=== PATIENT | male | born 1935 | race Caucasian/White ===

== ENCOUNTER 2021-11-09 14:57 | Inpatient (IN) ==
[2021-11-09] MEDS ORDERED: SODIUM CHLORIDE 0.9% 1000ML 500 ML IV ONE (15:21)
[2021-11-09 15:45] LABS: Basophils # (auto) 0.02 K/uL (0-0.2); Basophils % (auto) 0.3 %; Eosinophils # (auto) 0.09 K/uL (0-0.5); Eosinophils % (auto) 1.4 %; Hematocrit (blood only) 45.1 % (42-52); Hemoglobin 15.3 g/dL (14.0-18.0); Immature Granulocytes # (auto) 0.01 K/uL (0.00-0.02); Immature Granulocytes % (auto) 0.2 %; Lymphocytes # (auto) 1.69 K/uL (1.2-3.4); Lymphocytes % (auto) 25.4 %; Mean Corpuscular Hemoglobin 30.9 pg (25-34); Mean Corpuscular Hgb Conc 33.9 g/dL (32-36); Mean Corpuscular Volume 91.1 fL (80-100); Mean Platelet Volume 9.4 fL (7.4-10.4); Monocytes # (auto) 0.51 K/uL (0.11-0.59); Monocytes % (auto) 7.7 %; Neutrophils # (auto) 4.34 K/uL (1.4-6.5); Platelet Count 276 K/uL (130-400); RDW Coefficient of Variation 13.5 % (11.5-14.5); RDW Standard Deviation 44.5 fL (36.4-46.3); Red Blood Count 4.95 M/uL (4.7-6.1); White Blood Count 6.66 K/uL (4.8-10.8)
[2021-11-09 15:55] LABS: INR 1.1 (0.9-1.1)
--- NOTE | 2021-11-09 15:59 | Emergency Department Note ---
History of Present Illness General Chief complaint: Head Pain Stated complaint: FELL FROM CHAIR, HIT HEAD ON CHAIR Time Seen by Provider: 11/09/21 15:09 History of Present Illness 86-year-old male who presents to the emergency department with his family for evaluation of a closed head injury after he fell off of a dining room table chair this afternoon around 1:30 PM. The fall was not witnessed, but family ca me back into the room to find the patient laying on his back. He also had a lump on the left posterior aspect of the head. He does not think that he had any loss of consciousness. Patient has history of dementia and is mostly nonvocal. In addition to his fall, the family is concerned that the patient has had decreased activity and poor oral intake over the last 2 to 3 days. The patient was seen yesterday by his PCP, Dr. Marianela Barboza, with a negative COVID- 19 and influenza screen. The patient has not had any recent cough, runny nose, sinus congestion or diarrhea. The son reports that the patient has issues with incontinence. He has not had any prior history of UTIs. The family denies history of any other major health issues. When the son asked the patient this afternoon what hurts, he pointed to his head. The patient has not had prior history of close head injuries. Home Medications Medication Instructions Recorded Confirmed Type aspirin 81 mg tablet,delayed 81 mg PO DAILY 11/09/21 11/09/21 History release atorvastatin 20 mg tablet 20 mg PO DAILY 11/09/21 11/09/21 History donepezil 5 mg tablet (Aricept) 5 mg PO QAM 11/09/21 11/09/21 History oxybutynin chloride 10 mg 10 mg PO DAILY 11/09/21 11/09/21 History tablet,extended release 24 hr trazodone 50 mg tablet 50 mg PO HS 11/09/21 11/09/21 History Allergies Allergy/AdvReac Type Severity Reaction Status Date / Time No Known Allergies Allergy Unverified 11/09/21 20:40 Past Med/Surg History Medical History (Updated 11/09/21 @ 21:59 by Ajit Rodriguez) Bladder incontinence Dementia Hyperlipidemia Surgical History (Updated 11/09/21 @ 21:28 by Ajit Rodriguez) No significant past surgical history Social History (Updated 11/09/21 @ 21:28 by Ajit Rodriguez) Smoking Status: Never smoker Preferred Language: [place] marital status: Current Living Situation: Family current occupational status: retired Feels Safe at Home: Yes Review of Systems 10 system review was performed and was negative except for pertinent positives and negatives as indicated in history of present illness Physical Exam Vital Signs Vital Signs - 24 hr 11/09/21 15:04 11/09/21 15:21 11/09/21 16:00 Temperature 36.6 C Temperature Source Temporal Artery Scan Pulse Rate 83 75 Pulse Rate [Apical] Pulse Rate from SpO2 Sensor 76 Pulse Rhythm Regular Pulse Strength Normal Respiratory Rate 16 17 Respiratory Effort / Characteristics Non-Labored Spontaneous Respiratory Depth Normal Respiratory Pattern Regular Blood Pressure 163/72 H 175/81 H Blood Pressure [Left Arm] Blood Pressure Mean 102 112 Blood Pressure Mean [Left Arm] Blood Pressure Position Sitting Pulse Oximetry 99 99 98 Oxygen Delivery Method Room Air Room Air Sepsis Recent Fever Within 48 Hours No Sepsis New/Unexplained Change in Mental Status No Sepsis Action Taken by Nursing No Action Required 11/09/21 16:48 11/09/21 17:00 11/09/21 17:30 Temperature Temperature Source Pulse Rate 67 68 68 Pulse Rate [Apical] Pulse Rate from SpO2 Sensor 68 68 68 Pulse Rhythm Pulse Strength Respiratory Rate 22 18 19 Respiratory Effort / Characteristics Respiratory Depth Respiratory Pattern Blood Pressure 179/77 H 159/70 H 168/78 H Blood Pressure [Left Arm] Blood Pressure Mean 111 99 108 Blood Pressure Mean [Left Arm] Blood Pressure Position Pulse Oximetry 98 99 97 Oxygen Delivery Method Sepsis Recent Fever Within 48 Hours Sepsis New/Unexplained Change in Mental Status Sepsis Action Taken by Nursing 11/09/21 18:00 11/09/21 19:07 Temperature Temperature Source Pulse Rate 76 Pulse Rate [Apical] 69 Pulse Rate from SpO2 Sensor Pulse Rhythm Pulse Strength Respiratory Rate 18 19 Respiratory Effort / Characteristics Respiratory Depth Respiratory Pattern Blood Pressure 180/94 H Blood Pressure [Left Arm] 166/78 H Blood Pressure Mean 122 Blood Pressure Mean [Left Arm] 107 Blood Pressure Position Pulse Oximetry 96 Oxygen Delivery Method Room Air Sepsis Recent Fever Within 48 Hours Sepsis New/Unexplained Change in Mental Status Sepsis Action Taken by Nursing CONSTITUTIONAL: Healthy and well nourished. Patient is nonverbal, but does oc casionally respond to questions with mumbling. HEENT: Patient has a small hematoma to the left occiput without laceration. Pupils equal, round and reactive. No epistaxis, subconjunctival hemorrhage, raccoon's eyes or mcdonald sign. NECK: No obvious tenderness to palpation through the cervical musculature or central cervical spine. RESPIRATORY: Clear to auscultation bilaterally with no wheezing, crackles, rhonchi or stridor. CARDIOVASCULAR: Regular rate and rhythm with no murmurs, rubs or gallops. GASTROINTESTINAL: Bowel sounds present in all quadrants. Abdomen is soft and nontender to palpation. MUSCULOSKELETAL: No significant discomfort with passive range of motion of major joints. No peripheral edema noted. INTEGUMENTARY: No rash or other significant dermatologic conditions noted. HEMATOLOGIC: No ecchymosis or petechiae. NEUROLOGIC: No obvious focal neurologic deficits appreciated. Course Course Patient history and physical exam were performed. Nurses notes were reviewed. Vital signs were reviewed, showing an elevated blood pressure of 163/72. The patient is otherwise afebrile and not hypoxic or tachycardic. Patient does not appear in any acute distress on exam. Given the patient's head injury, they did recommend CT imaging of the head and cervical spine. Regarding the patient's other recent change from baseline, but I did recommend additional work-up as well, and the family was in agreement. IV access was established, and labs were drawn. An initial ECG was performed, showing a normal sinus rhythm with incomplete right bundle branch block, rightward axis and junctional ST depres sions. Devious ECGs were available for comparison. The son reports that he does have a prior ECG within the [facility]. The patient was placed on air sampling and monitoring while in the emergency department. Portable chest x- ray was performed and was normal. Contrast CT of the head was concerning for possible right anterior frontal lobe cortical contusion versus hemorrhage, as well as a subdural hemorrhage versus calcification along the tentorium. Review of labs showed an initial normal CBC and coagulation studies. CMP showed an elevated random glucose of 170. Initial lactate was elevated at 2.2, with a repeat 2-hour lactate that was normal. Blood cultures x2 were collected given the patient's change in status over the past several days. Troponin was also elevated at 0.05. Procalcitonin and TSH were normal. Urinalysis with a straight cath sample was normal. COVID-19 was again tested as negative. Upon finding the abnormal head CT, the case was further discussed with Dr. Baird, ED team physician, who recommended discussing the case further with a neurosurgeon at [facility]. Also discussed findings with the patient's family, who was in agreement with transfer if warranted. The case was initially discussed with Dr. Olson, ED attending physician, who reviewed the patient's history. The images were transferred to [facility] for review. Dr. Olson indicated that he would discuss the case further with Dr. Brody (neurosurgeon) and Dr. Soares (trauma surgeon), and they do not feel that the patient warrants transfer to their facility at this time. They did recommend repeating the CT scan in 6 hours, and contacting them if there are any acute changes. Both the patient's family and attending physician were in agreement with this plan. Time to order for repeat CT imaging was entered into the system. The case was also discussed with Dr. Cheema, [facility] hospitalist, who will further manage the patient. There were no hospital beds available, so the patient will remain in the emergency department for further management until he can have repeat CT imaging, at which time further disposition will be determined. Administered Medications Discontinued Medications Sodium Chloride (Nss 1000ml) 500 mls @ 999 mls/hr IV .Q31M ONE Stop: 11/09/21 15:51 Last Infusion: 11/09/21 16:06 Dose: 0 mls/hr Documented by: [id number] Admin: 11/09/21 15:35 Dose: 999 mls/hr Documented by: [id number] Medical Decision Making Medical Records Attestation: I reviewed the patient's medical records. Home Medications Current Medication List: was personally reviewed by me Laboratory Data Attestation: I reviewed the patient's lab results. Result diagrams: 11/09/21 15:36 11/09/21 15:36 Lab Results 11/09/21 11/09/21 11/09/21 Range/Units 15:36 15:36 15:36 WBC 6.66 (4.8-10.8) K/uL RBC 4.95 (4.7-6.1) M/uL Hgb 15.3 (14.0-18.0) g/dL Hct 45.1 (42-52) % MCV 91.1 (80-100) fL MCH 30.9 (25-34) pg MCHC 33.9 (32-36) g/dL RDW Std Deviation 44.5 (36.4-46.3) fL RDW Coeff of Kamari 13.5 (11.5-14.5) % Plt Count 276 (130-400) K/uL MPV 9.4 (7.4-10.4) fL Immature Gran % (Auto) 0.2 % Neut % (Auto) 65.0 % Lymph % (Auto) 25.4 % [place] % (Auto) 7.7 % Eos % (Auto) 1.4 % Baso % (Auto) 0.3 % Neut # (Auto) 4.34 (1.4-6.5) K/uL Lymph # (Auto) 1.69 (1.2-3.4) K/uL [place] # (Auto) 0.51 (0.11-0.59) K/uL Eos # (Auto) 0.09 (0-0.5) K/uL Baso # (Auto) 0.02 (0-0.2) K/uL Immature Gran # (Auto) 0.01 (0.00-0.02) K/uL PT 11.0 (9.0-12.0) Seconds INR 1.1 (0.9-1.1) Sodium 139 (136-145) mmol/L Potassium 4.3 (3.5-5.1) mmol/L Chloride 100 (98-107) mmol/L Carbon Dioxide 31 (21-32) mmol/L Anion Gap 8 (3-11) BUN 18 (6-23) mg/dl Creatinine 1.02 (0.6-1.4) mg/dl Est Cr Clr Drug Dosing 49.1 ml/min Est GFR ( Amer) 76.2 ml/min Est GFR (Non-Af Amer) 65.8 ml/min BUN/Creatinine Ratio 17.6 (10-20) Glucose 170 H (70-99(Fasting)) mg/dl Lactate (0.4-2.0) mmol/L Calcium 10.2 H (8.5-10.1) mg/dl Magnesium 2.2 (1.7-2.4) mg/dl Total Bilirubin 1.2 H (0.2-1.0) mg/dl AST 29 (13-39) U/L ALT 25 (7-52) U/L Alkaline Phosphatase 95 (34-104) U/L Troponin I 0.05 H* (0-0.04) ng/ml Total Protein 7.9 (6.0-8.3) gm/dl Albumin 4.2 (3.4-5.0) gm/dl Globulin 3.7 (2.5-4.0) gm/dl Albumin/Globulin Ratio 1.1 (0.9-2) Procalcitonin (0-0.5) ng/ml TSH (0.300-4.500) uIu/ml Urine Color Urine Appearance (Clear) Urine pH (4.5-7.5) Ur Specific [place] (1.000-1.030) Urine Protein (Negative) Urine Glucose (UA) (Negative) Urine Ketones (Negative) Urine Blood (Negative) Urine Nitrite (Negative) Urine Bilirubin (Negative) Urine Urobilinogen (Negative) Ur Leukocyte Esterase (Negative) SARS-CoV-2, RNA, NAAT (NEGATIVE) 11/09/21 11/09/21 11/09/21 Range/Units 15:36 15:36 16:45 WBC (4.8-10.8) K/uL RBC (4.7-6.1) M/uL Hgb (14.0-18.0) g/dL Hct (42-52) % MCV (80-100) fL MCH (25-34) pg MCHC (32-36) g/dL RDW Std Deviation (36.4-46.3) fL RDW Coeff of Kamari (11.5-14.5) % Plt Count (130-400) K/uL MPV (7.4-10.4) fL Immature Gran % (Auto) % Neut % (Auto) % Lymph % (Auto) % [place] % (Auto) % Eos % (Auto) % Baso % (Auto) % Neut # (Auto) (1.4-6.5) K/uL Lymph # (Auto) (1.2-3.4) K/uL [place] # (Auto) (0.11-0.59) K/uL Eos # (Auto) (0-0.5) K/uL Baso # (Auto) (0-0.2) K/uL Immature Gran # (Auto) (0.00-0.02) K/uL PT (9.0-12.0) Seconds INR (0.9-1.1) Sodium (136-145) mmol/L Potassium (3.5-5.1) mmol/L Chloride (98-107) mmol/L Carbon Dioxide (21-32) mmol/L Anion Gap (3-11) BUN (6-23) mg/dl Creatinine (0.6-1.4) mg/dl Est Cr Clr Drug Dosing ml/min Est GFR ( Amer) ml/min Est GFR (Non-Af Amer) ml/min BUN/Creatinine Ratio (10-20) Glucose (70-99(Fasting)) mg/dl Lactate 2.2 H* (0.4-2.0) mmol/L Calcium (8.5-10.1) mg/dl Magnesium (1.7-2.4) mg/dl Total Bilirubin (0.2-1.0) mg/dl AST (13-39) U/L ALT (7-52) U/L Alkaline Phosphatase (34-104) U/L Troponin I (0-0.04) ng/ml Total Protein (6.0-8.3) gm/dl Albumin (3.4-5.0) gm/dl Globulin (2.5-4.0) gm/dl Albumin/Globulin Ratio (0.9-2) Procalcitonin (0-0.5) ng/ml TSH 1.537 (0.300-4.500) uIu/ml Urine Color Yellow Urine Appearance Clear (Clear) Urine pH 7.5 (4.5-7.5) Ur Specific [place] 1.008 (1.000-1.030) Urine Protein Negative (Negative) Urine Glucose (UA) Negative (Negative) Urine Ketones Negative (Negative) Urine Blood Negative (Negative) Urine Nitrite Negative (Negative) Urine Bilirubin Negative (Negative) Urine Urobilinogen Negative (Negative) Ur Leukocyte Esterase Negative (Negative) SARS-CoV-2, RNA, NAAT (NEGATIVE) 11/09/21 11/09/21 11/09/21 Range/Units 17:12 17:19 20:30 WBC (4.8-10.8) K/uL RBC (4.7-6.1) M/uL Hgb (14.0-18.0) g/dL Hct (42-52) % MCV (80-100) fL MCH (25-34) pg MCHC (32-36) g/dL RDW Std Deviation (36.4-46.3) fL RDW Coeff of Kamari (11.5-14.5) % Plt Count (130-400) K/uL MPV (7.4-10.4) fL Immature Gran % (Auto) % Neut % (Auto) % Lymph % (Auto) % [place] % (Auto) % Eos % (Auto) % Baso % (Auto) % Neut # (Auto) (1.4-6.5) K/uL Lymph # (Auto) (1.2-3.4) K/uL [place] # (Auto) (0.11-0.59) K/uL Eos # (Auto) (0-0.5) K/uL Baso # (Auto) (0-0.2) K/uL Immature Gran # (Auto) (0.00-0.02) K/uL PT (9.0-12.0) Seconds INR (0.9-1.1) Sodium (136-145) mmol/L Potassium (3.5-5.1) mmol/L Chloride (98-107) mmol/L Carbon Dioxide (21-32) mmol/L Anion Gap (3-11) BUN (6-23) mg/dl Creatinine (0.6-1.4) mg/dl Est Cr Clr Drug Dosing ml/min Est GFR ( Amer) ml/min Est GFR (Non-Af Amer) ml/min BUN/Creatinine Ratio (10-20) Glucose (70-99(Fasting)) mg/dl Lactate 1.0 (0.4-2.0) mmol/L Calcium (8.5-10.1) mg/dl Magnesium (1.7-2.4) mg/dl Total Bilirubin (0.2-1.0) mg/dl AST (13-39) U/L ALT (7-52) U/L Alkaline Phosphatase (34-104) U/L Troponin I (0-0.04) ng/ml Total Protein (6.0-8.3) gm/dl Albumin (3.4-5.0) gm/dl Globulin (2.5-4.0) gm/dl Albumin/Globulin Ratio (0.9-2) Procalcitonin < 0.05 (0-0.5) ng/ml TSH (0.300-4.500) uIu/ml Urine Color Urine Appearance (Clear) Urine pH (4.5-7.5) Ur Specific [place] (1.000-1.030) Urine Protein (Negative) Urine Glucose (UA) (Negative) Urine Ketones (Negative) Urine Blood (Negative) Urine Nitrite (Negative) Urine Bilirubin (Negative) Urine Urobilinogen (Negative) Ur Leukocyte Esterase (Negative) SARS-CoV-2, RNA, NAAT NEGATIVE (NEGATIVE) Imaging Data Attestation: I personally reviewed and interpreted this imaging study as follows: My Impression: My interpretation of a portable chest x-ray does not show any consolidations, pneumothorax or cardiomegaly. My interpretation of a noncontrast CT of the head and cervical spine shows concerning findings of possible cortical contusion versus intraparenchymal hemorrhage of the right anterior frontal lobe, as well as possible subdural hemorrhage versus calcification along the tentorium. Repeat CT was suggested in 6 to 12 hours. Radiologist reports were reviewed. Radiologist's Impression: Chest X-Ray 11/09/21 15:21 XR chest 1V portable HISTORY: weakness COMPARISON: None. FINDINGS: No focal lung consolidations to suggest pneumonia. No evidence for pulmonary edema. The heart is borderline enlarged. There is a tortuous thoracic aorta. No rib fractures. A few left basilar linear densities consistent with subsegmental atelectasis. IMPRESSION: No acute process. ACT 112: Negative or not required by law. Electronically signed by: Keo Johnson M.D. 11/09/2021 4:[address] 11/09/21 15:[address] DOSE: 537.48 mGy.cm HISTORY: Fall with closed head injury. TECHNIQUE: Multiaxial CT images of the head were performed without the use of intravenous contrast. Automated exposure control was utilized for this study. A dose lowering technique was utilized adhering to the principles of ALARA. Comparison: None. Findings: The paranasal sinuses and mastoid air cells are clear. The calvarium and skull base are intact. There is left posterior scalp swelling. A few small focal areas of hyperdensity within the right anterior frontal lobe with the largest on image 11 measuring 8 mm. These are consistent with small foci of intraparenchymal hemorrhage in the setting of cortical contusions. Small hyperdense foci along the tentorium could represent calcification or trace subdural hemorrhage. The ventricles and sulci demonstrate mild age-related involutional changes. There is no mass or midline shift. Moderate microvascular ischemic changes are noted. Impression: 1. Small foci of intraparenchymal hemorrhage within the right anterior frontal lobe consistent with cortical contusions. 2. Small focal areas of hyperdensity along the tentorium which could represent calcification or subdural hemorrhage. 3. Follow-up head CT in 6 to 12 hours recommended to ensure stability of these findings. ACT 112: Negative or not required by law. Electronically signed by: Keo Johnson M.D. 11/09/2021 5:08 PM ECG Data Attestation: I personally reviewed and interpreted this ECG as follows: Indication: + weakness Rate (beats per minute): 76 Rhythm: + normal sinus ECG Intervals/blocks: + Incomplete right bundle branch block ECG Brule: + Right axis deviation ECG ST segments: + ST depression (Junctional) ECG Findings: + Other (Junctional ST depressions) Comparison ECG Date: no prior available Blood Pressure Blood Pressure Findings: Elevated blood pressure MDM Narrative Cardiac monitoring: An order was placed for continuous cardiac monitoring. The monitor shows a rate of 76 bpm with a normal sinus rhythm. surveillance system monitor history was reviewed throughout the evaluation, and no dysrhythmias or changes in morphology were noted. Patient presents to the emergency department for evaluation of injuries after suffering a fall in his home this afternoon with a closed head injury. CT imaging of the head is questionable for a right frontal cortical contusion vers us hemorrhage, as well as a subdural hematoma versus calcification. Jhony CT imaging was recommended after discussing the case further with neurosurgery, trauma surgery and an ED physician at [facility]. At the time of transfer of care, the patient was awaiting repeat CT imaging to determine whether he would need to be transferred to the [facility]. The patient has also had other symptoms at home, with laboratory studies today showing an elevated troponin of unknown significance. ECG does not show any evidence for ischemia or infarct. No CT imaging was performed of the chest, abdomen or pelvis as he does not have any abnormal physical exam findings. Straight cath urinalysis does not show evidence for infection. Chest x-ray does not show evidence for pneumonia. Patient will be further evaluated by the [facility] hospitalist. Impression & Plan Acute intra-cranial hemorrhage, Dementia, Closed head injury, Elevated troponin, Decreased oral intake Discharge Plan Visit Data Chief Complaint: Head Pain Stated Complaint: FELL FROM CHAIR, HIT HEAD ON CHAIR ED Provider: Evan Baird ED Midlevel Provider: Ajit Rodriguez Discharge Problem: Acute intra-cranial hemorrhage, Dementia, Closed head injury, Elevated troponin, Decreased oral intake Forms Stand Alone Forms: My [facility] [employer] Prescriptions Prescriptions: No Action donepezil [Aricept] 5 mg Tablet 5 mg PO QAM RF: 0 oxybutynin chloride 10 mg Tablet Extended Release 24hr 10 mg PO DAILY RF: 0 trazodone 50 mg Tablet 50 mg PO HS RF: 0 aspirin [Aspir-Low] 81 mg Tablet,Delayed Release (Dr/Ec) 81 mg PO DAILY RF: 0 atorvastatin 20 mg Tablet 20 mg PO DAILY RF: 0 Referrals Referrals: Marianela Barboza MD [Primary Care Provider] - Discharge Problem: Closed head injury Qualifiers: Encounter type: initial encounter Qualified Code(s): S09.90XA - Unspecified injury of head, initial encounter
--- NOTE | 2021-11-09 16:08 | XRay Report ---
XR chest 1V portable HISTORY: weakness COMPARISON: None. FINDINGS: No focal lung consolidations to suggest pneumonia. No evidence for pulmonary edema. The hea rt is borderline enlarged. There is a tortuous thoracic aorta. No rib fractures. A few left basilar l inear densities consistent with subsegmental atelectasis. IMPRESSION: No acute process. ACT 112: Negative or not required by law. Electronically signed by: Keo Johnson M.D. 11/09/2021 4:06 PM
[2021-11-09 16:21] LABS: Albumin Globulin Ratio 1.1 (0.9-2); Albumin Level 4.2 gm/dl (3.4-5.0); BUN Creatinine Ratio 17.6 (10-20); Bilirubin,Total 1.2 mg/dl (0.2-1.0); Calcium 10.2 mg/dl (8.5-10.1); Creatinine Clr Calc Pharmacy 49.1 ml/min; Est GFR (African American) 76.2 ml/min; Est GFR (Non-African American) 65.8 ml/min; Globulin 3.7 gm/dl (2.5-4.0); Magnesium 2.2 mg/dl (1.7-2.4); Potassium 4.3 mmol/L (3.5-5.1); Total Protein 7.9 gm/dl (6.0-8.3)
[2021-11-09 16:36] LABS: Troponin I 0.05 ng/ml (0-0.04)
[2021-11-09 17:01] LABS: Appearance Urine Clear (Clear); Bilirubin Urine Negative (Negative); Blood Urine Negative (Negative); Color Urine Yellow; Glucose Urine UA Negative (Negative); Ketones Urine Negative (Negative); Leukocyte Esterase Urine Negative (Negative); Nitrite Urine Negative (Negative); Protein Urine Negative (Negative); Specific Gravity Urine 1.008 (1.000-1.030); Urobilinogen Urine Negative (Negative); pH Urine 7.5 (4.5-7.5)
--- NOTE | 2021-11-09 17:09 | CT Scan Report ---
HEAD CT NONCONTRAST CT DOSE: 537.48 mGy.cm HISTORY: Fall with closed head injury. TECHNIQUE: Multiaxial CT images of the head were performed without the use of intravenous contrast. A utomated exposure control was utilized for this study. A dose lowering technique was utilized adheri ng to the principles of ALARA. Comparison: None. Findings: The paranasal sinuses and mastoid air cells are clear. The calvarium and skull base are int act. There is left posterior scalp swelling. A few small focal areas of hyperdensity within the right anterior frontal lobe with the largest on image 11 measuring 8 mm. These are consistent with small f oci of intraparenchymal hemorrhage in the setting of cortical contusions. Small hyperdense foci along the tentorium could represent calcification or trace subdural hemorrhage. The ventricles and sulci d emonstrate mild age-related involutional changes. There is no mass or midline shift. Moderate microva scular ischemic changes are noted. Impression: 1. Small foci of intraparenchymal hemorrhage within the right anterior frontal lobe consistent with c ortical contusions. 2. Small focal areas of hyperdensity along the tentorium which could represent calcification or subdu ral hemorrhage. 3. Follow-up head CT in 6 to 12 hours recommended to ensure stability of these findings. ACT 112: Negative or not required by law. Electronically signed by: Keo Johnson M.D. 11/09/2021 5:08 PM
--- NOTE | 2021-11-09 20:06 | Emergency Department Note ---
ED Visit Note The patient was seen and examined with Ajit Rodriguez PA-C. I agree with the history, physical and findings. Please see the note for disposition and details. Patient had a borderline elevation of troponin. He had some general malaise. Lactate was initially elevated and rechecked and was normal. The patient will need management in the hospital. Unfortunately he had a minor fall and suffered a very tiny cerebral contusion. Ajit did discuss this with Ana Hanna. The patient will have repeat head CT imaging. If stable patient will remain here for further management. .
--- NOTE | 2021-11-09 20:59 | History & Physical Report ---
Date of Service November 09, 2021 Assessment & Plan (1) Acute intra-cranial hemorrhage: Plan: Traumatic ICH Situational hypertension Possible chronic BP elevation given cardiomegaly on x-ray Troponin elevation likely secondary to BP elevation DM2 diet-controlled, well-controlled as of recent hemoglobin A1c of 04 October 2020 Hyperlipidemia on statin Rx dementia PCU given troponin elevation Appropriate to hold home aspirin given ICH [facility] neurochecks Neurosurgery consultation Re: Traumatic ICH (ER provider already in touch with Dr. Brody. Transfer currently not indicated, repeat CT head recommended after 6 hours as per recommendation.) Initiate lisinopril if with persistent BP elevation Trend troponin, TTE if with progression ISS BG goal 1 10-1 40, update hemoglobin A1c DVT prophylaxis. SCDs Re: Traumatic ICH Full code as per son, Mr. Rajesh Headley. He requests updates from providers thru [phone]. Text document was generated using e[employer] voice recognition software. It may contain grammatical or spelling errors. Kindly contact undersigned for clarification of any documentation item in question. History of Present Illness Chief Complaint: Head trauma Primary Care Provider: Marianela Barboza MD History obtained from patient, family, and records. Limited history from patient secondary to dementia. Medical history significant for dementia, hyperlipidemia, BPH, DM2 diet- controlled. Patient last few days, patient noted to be sluggish with runny nose and sinus congestion symptoms. Headache with decreased appetite. No chest pain, no S OB. Family contacted PCP 2 days ago regarding concerns. PCP recommended outpatient COVID-19 test. No known recent COVID-19 contacts. Patient completed COVID-19 vaccination. Patient tilted over while seated at a chair at home. Left-sided head trauma without LOC. Patient brought to the ER for evaluation. 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 son Allergies Allergy/AdvReac Type Severity Reaction Status Date / Time No Known Allergies Allergy Unverified 11/09/21 20:40 Home Medications Medication Instructions Recorded Confirmed Type aspirin 81 mg tablet,delayed 81 mg PO DAILY 11/09/21 11/09/21 History release atorvastatin 20 mg tablet 20 mg PO DAILY 11/09/21 11/09/21 History donepezil 5 mg tablet (Aricept) 5 mg PO QAM 11/09/21 11/09/21 History oxybutynin chloride 10 mg 10 mg PO DAILY 11/09/21 11/09/21 History tablet,extended release 24 hr trazodone 50 mg tablet 50 mg PO HS 11/09/21 11/09/21 History Past Med/Surg History Medical History (Updated 11/09/21 @ 21:59 by Ajit Rodriguez) Bladder incontinence Dementia Hyperlipidemia Surgical History (Updated 11/09/21 @ 21:28 by Ajit Rodriguez) No significant past surgical history Social History (Updated 11/09/21 @ 21:28 by Ajit Rodriguez) Smoking Status: Never smoker Hx Alcohol Use: No Hx Substance Use: No Preferred Language: Puerto Rican Communication Ability: Effective Communication Ability Comment: Sometimes pt has difficulty communicating in maori d/t dementia Cascade Operator Required: Yes and No Beliefs That Will Affect Care: None marital status: Current Living Situation: Family Current Living Situation Comment: Lives with son and his family current occupational status: retired Other Information That Helps Us Care for You: No Feels Safe at Home: Yes Safety Concerns: Feels Safe At This Time Assistive Devices: None Review of Systems Review of Systems: Could not be reliably obtained secondary to dementia Physical Exam Physical Exam: GENERAL: Demented, comfortable, no respiratory distress SKIN: Normal color, warm HEENT: Partial alopecia, pink palpebral conjunctivae, no ptosis, dry buccal mucosa NECK : Cervical collar in place, no tenderness CHEST : Decreased breath sounds, no tenderness HEART : RRR, systolic murmur best heard over left sternal border ABDOMEN: Some distention, nontender EXTREMITIES : No LE swelling/tenderness, no other conspicuous deformities noted NEUROLOGIC : Demented, no facial asymmetry, gait and stance not assessed Results & Data Results & Data ([facility]) Vital Signs (Past 12 Hours) Vital Signs Temp Pulse Pulse Resp BP BP Pulse Ox 11/09/21 19:07 69 19 166/78 H 96 11/09/21 18:00 76 18 180/94 H 11/09/21 17:30 68 19 168/78 H 97 11/09/21 17:00 68 18 159/70 H 99 11/09/21 16:48 67 22 179/77 H 98 11/09/21 16:00 75 17 175/81 H 98 11/09/21 15:21 99 11/09/21 15:04 36.6 C 83 16 163/72 H 99 Laboratory Results Laboratory Results WBC 6.66 K/uL (4.8-10.8) 11/09/21 15:36 RBC 4.95 M/uL (4.7-6.1) 11/09/21 15:36 Hgb 15.3 g/dL (14.0-18.0) 11/09/21 15:36 Hct 45.1 % (42-52) 11/09/21 15:36 MCV 91.1 fL (80-100) 11/09/21 15:36 MCH 30.9 pg (25-34) 11/09/21 15:36 MCHC 33.9 g/dL (32-36) 11/09/21 15:36 RDW Std Deviation 44.5 fL (36.4-46.3) 11/09/21 15:36 RDW Coeff of Kamari 13.5 % (11.5-14.5) 11/09/21 15:36 Plt Count 276 K/uL (130-400) 11/09/21 15:36 MPV 9.4 fL (7.4-10.4) 11/09/21 15:36 Immature Gran % (Auto) 0.2 % 11/09/21 15:36 Neut % (Auto) 65.0 % 11/09/21 15:36 Lymph % (Auto) 25.4 % 11/09/21 15:36 [place] % (Auto) 7.7 % 11/09/21 15:36 Eos % (Auto) 1.4 % 11/09/21 15:36 Baso % (Auto) 0.3 % 11/09/21 15:36 Neut # (Auto) 4.34 K/uL (1.4-6.5) 11/09/21 15:36 Lymph # (Auto) 1.69 K/uL (1.2-3.4) 11/09/21 15:36 [place] # (Auto) 0.51 K/uL (0.11-0.59) 11/09/21 15:36 Eos # (Auto) 0.09 K/uL (0-0.5) 11/09/21 15:36 Baso # (Auto) 0.02 K/uL (0-0.2) 11/09/21 15:36 Immature Gran # (Auto) 0.01 K/uL (0.00-0.02) 11/09/21 15:36 PT 11.0 Seconds (9.0-12.0) 11/09/21 15:36 INR 1.1 (0.9-1.1) 11/09/21 15:36 Sodium 139 mmol/L (136-145) 11/09/21 15:36 Potassium 4.3 mmol/L (3.5-5.1) 11/09/21 15:36 Chloride 100 mmol/L (98-107) 11/09/21 15:36 Carbon Dioxide 31 mmol/L (21-32) 11/09/21 15:36 Anion Gap 8 (3-11) 11/09/21 15:36 BUN 18 mg/dl (6-23) 11/09/21 15:36 Creatinine 1.02 mg/dl (0.6-1.4) 11/09/21 15:36 Est Cr Clr Drug Dosing 49.1 ml/min 11/09/21 15:36 Est GFR ( Amer) 76.2 ml/min 11/09/21 15:36 Est GFR (Non-Af Amer) 65.8 ml/min 11/09/21 15:36 BUN/Creatinine Ratio 17.6 (10-20) 11/09/21 15:36 Glucose 170 mg/dl (70-99(Fasting)) H 11/09/21 15:36 Lactate 1.0 mmol/L (0.4-2.0) 11/09/21 17:19 Calcium 10.2 mg/dl (8.5-10.1) H 11/09/21 15:36 Magnesium 2.2 mg/dl (1.7-2.4) 11/09/21 15:36 Total Bilirubin 1.2 mg/dl (0.2-1.0) H 11/09/21 15:36 AST 29 U/L (13-39) 11/09/21 15:36 ALT 25 U/L (7-52) 11/09/21 15:36 Alkaline Phosphatase 95 U/L (34-104) 11/09/21 15:36 Troponin I 0.05 ng/ml (0-0.04) H* 11/09/21 15:36 Total Protein 7.9 gm/dl (6.0-8.3) 11/09/21 15:36 Albumin 4.2 gm/dl (3.4-5.0) 11/09/21 15:36 Globulin 3.7 gm/dl (2.5-4.0) 11/09/21 15:36 Albumin/Globulin Ratio 1.1 (0.9-2) 11/09/21 15:36 Procalcitonin < 0.05 ng/ml (0-0.5) 11/09/21 17:12 TSH 1.537 uIu/ml (0.300-4.500) 11/09/21 15:36 Urine Color Yellow 11/09/21 16:45 Urine Appearance Clear (Clear) 11/09/21 16:45 Urine pH 7.5 (4.5-7.5) 11/09/21 16:45 Ur Specific [place] 1.008 (1.000-1.030) 11/09/21 16:45 Urine Protein Negative (Negative) 11/09/21 16:45 Urine Glucose (UA) Negative (Negative) 11/09/21 16:45 Urine Ketones Negative (Negative) 11/09/21 16:45 Urine Blood Negative (Negative) 11/09/21 16:45 Urine Nitrite Negative (Negative) 11/09/21 16:45 Urine Bilirubin Negative (Negative) 11/09/21 16:45 Urine Urobilinogen Negative (Negative) 11/09/21 16:45 Ur Leukocyte Esterase Negative (Negative) 11/09/21 16:45 Impressions Chest X-Ray 11/09/21 15:21 XR chest 1V portable HISTORY: weakness COMPARISON: None. FINDINGS: No focal lung consolidations to suggest pneumonia. No evidence for pulmonary edema. The heart is borderline enlarged. There is a tortuous thoracic aorta. No rib fractures. A few left basilar linear densities consistent with subsegmental atelectasis. IMPRESSION: No acute process. ACT 112: Negative or not required by law. Electronically signed by: Keo Johnson M.D. 11/09/2021 4:[address] 11/09/21 15:[address] DOSE: 537.48 mGy.cm HISTORY: Fall with closed head injury. TECHNIQUE: Multiaxial CT images of the head were performed without the use of intravenous contrast. Automated exposure control was utilized for this study. A dose lowering technique was utilized adhering to the principles of ALARA. Comparison: None. Findings: The paranasal sinuses and mastoid air cells are clear. The calvarium and skull base are intact. There is left posterior scalp swelling. A few small focal areas of hyperdensity within the right anterior frontal lobe with the largest on image 11 measuring 8 mm. These are consistent with small foci of intraparenchymal hemorrhage in the setting of cortical contusions. Small hyperdense foci along the tentorium could represent calcification or trace subdural hemorrhage. The ventricles and sulci demonstrate mild age-related involutional changes. There is no mass or midline shift. Moderate microvascular ischemic changes are noted. Impression: 1. Small foci of intraparenchymal hemorrhage within the right anterior frontal lobe consistent with cortical contusions. 2. Small focal areas of hyperdensity along the tentorium which could represent calcification or subdural hemorrhage. 3. Follow-up head CT in 6 to 12 hours recommended to ensure stability of these findings. ACT 112: Negative or not required by law. Electronically signed by: Keo Johnson M.D. 11/09/2021 5:08 PM Diagnostic Findings EKG as per my interpretation rate 75, NSR, RAD, incomplete RBBB, no ischemia
--- NOTE | 2021-11-09 22:47 | CT Scan Report ---
HEAD CT NONCONTRAST CT DOSE: 1311.06 mGy.cm HISTORY: Intracranial hemorrhage. Follow-up. TECHNIQUE: Multiaxial CT images of the head were performed without the use of intravenous contrast. A utomated exposure control was utilized for this study. A dose lowering technique was utilized adheri ng to the principles of ALARA. Comparison: Head CT 11/09/2021. Findings: The paranasal sinuses and mastoid air cells are clear. Mild left posterior scalp swelling i s again noted. The calvarium and skull base are intact. Hyperdense foci along the tentorium may repre sent calcifications or trace subdural hematoma. This remains unchanged. There is no mass, midline calderon ft, acute infarct. Atrophy and microvascular ischemic changes are again noted. A few punctate hypoden se foci within the right anterior frontal lobe likely representing intraparenchymal hematomas in the setting of cortical contusions. A similar tiny prior study. No additional areas of hemorrhage identif ied within the brain. Impression: 1. No change in the small foci of intraparenchymal hemorrhage within the right anterior frontal lobe consistent with cortical contusions. 2. Small focal areas of hyperdensity along the tentorium are also stable and may represent calcificat ion or trace subdural hemorrhage. 3. Follow-up 12 to [address] follow-up is recommended to ensure stability/resolution. ACT 112: Negative or not required by law. Electronically signed by: Keo Johnson M.D. 11/09/2021 10:45 PM
[2021-11-09] MEDS ORDERED: ACETAMINOPHEN 325 MG TAB PO PRN (23:06)
[2021-11-09] MEDS ORDERED: DEXTROSE 50% 50 ML SYRINGE IV PRN (23:06)
[2021-11-09] MEDS ORDERED: CARBOHYDRATES FOR HYPOGLYCEMIA PO PRN (23:06)
[2021-11-09] MEDS ORDERED: OLANZapine 10 MG/2.1 ML SDV IM PRN (23:06)
[2021-11-09] MEDS ORDERED: GLUCAGON FOR INJ 1 MG VIAL SQ PRN (23:06)
[2021-11-09] MEDS ORDERED: GLUCOSE 40% GEL 15 GM TUBE PO PRN (23:06)
[2021-11-09] MEDS ORDERED: GLUCOSE 10 TABS/TUBE PO PRN (23:06)
[2021-11-09] MEDS ORDERED: PROMETHAZINE HCL 6.25 MG in SODIUM CHLORIDE 0.9% 50 ML IV PRN (23:06)
[2021-11-10] MEDS: SODIUM CHLORIDE 0.9% 1000ML 1,000 ML IV SCH ×2 (00:54→20:32)
[2021-11-10] MEDS: INSULIN ASPART PER UNIT SC SCH ×4 (00:55→18:21)
[2021-11-10 06:06] LABS: Basophils # (auto) 0.02 K/uL (0-0.2); Basophils % (auto) 0.3 %; Eosinophils # (auto) 0.11 K/uL (0-0.5); Eosinophils % (auto) 1.5 %; Hematocrit (blood only) 44.5 % (42-52); Hemoglobin 15.2 g/dL (14.0-18.0); Immature Granulocytes # (auto) 0.01 K/uL (0.00-0.02); Immature Granulocytes % (auto) 0.1 %; Lymphocytes # (auto) 1.98 K/uL (1.2-3.4); Lymphocytes % (auto) 26.3 %; Mean Corpuscular Hemoglobin 30.5 pg (25-34); Mean Corpuscular Hgb Conc 34.2 g/dL (32-36); Mean Corpuscular Volume 89.2 fL (80-100); Mean Platelet Volume 9.3 fL (7.4-10.4); Monocytes # (auto) 0.85 K/uL (0.11-0.59); Monocytes % (auto) 11.3 %; Neutrophils # (auto) 4.57 K/uL (1.4-6.5); Neutrophils % (auto) 60.5 %; Platelet Count 269 K/uL (130-400); RDW Coefficient of Variation 13.3 % (11.5-14.5); RDW Standard Deviation 43.4 fL (36.4-46.3); Red Blood Count 4.99 M/uL (4.7-6.1); White Blood Count 7.54 K/uL (4.8-10.8)
[2021-11-10] MEDS: ATORVASTATIN 20 MG TAB PO SCH (10:54)
[2021-11-10] MEDS: DONEPEZIL HCL 5 MG TAB PO SCH (10:55)
[2021-11-10] MEDS: OXYBUTYNIN CHLORIDE XL 5 MG TABCR PO SCH (10:57)
--- NOTE | 2021-11-10 12:10 | CT Scan Report ---
CT head/brain wo con CLINICAL HISTORY: ffup, ich Technique: Contiguous axial CT images of the head were acquired from the base of the skull to the donna yokasta without intravenous contrast administration. Images were viewed in brain, subdural and bone [facility]. Automated dose lowering techniques and/or adjustment according to patient size were utilized for this exam. Comparison: Comparison is made to CT head 11/09/2021 Findings: Areas of decreased attenuation are present in the periventricular and subcortical white matter bilate rally consistent with small vessel ischemic disease. Generalized cerebral atrophy with commensurate e nlargement of the ventricles, sulci, and cisterns is also present. There is no acute intracranial hem orrhage or evidence of acute territorial infarction. No shift of the midline structures, mass effect, or extra-axial abnormalities are shown. Atherosclerotic calcifications are present in the intracran ial segments of the internal carotid arteries. Imaged portions of the paranasal sinuses and mastoid air cells are clear. The orbits appear normal. There are no acute fractures of the calvaria or scalp swelling. Impression: No acute intracranial hemorrhage, no evidence of acute territorial infarction or other acute intracra nial disease process. ACT 112: Negative or not required by law. Electronically signed by: Jhonatan Baker M.D. 11/10/2021 12:09 PM
--- NOTE | 2021-11-10 14:30 | Hospitalist Progress Note ---
Date of Service November 10, 2021 Assessment & Plan (1) Acute intra-cranial hemorrhage: Plan: 86-year-old male with PMH of dementia, HLD, BPH, DM 2 diet-controlled presented 11/09 to our ED after fall and found to have traumatic ICH at ED. Per patient's son Rajesh, patient fell on the wooden floor while trying to sit himself on chair on the day of arrival. 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 He is being managed for the following: #. Acute intracranial hemorrhage #. Weakness Patient tilted over while seated at a chair at home. Left-sided head trauma without LOC. Patient did not have any dizziness/sweating/nausea/chest pain/palpitation prior to fall. Per patient's son, patient has not been eating properly and has been becoming weak 2 days UPWARD BOUND DIRECTOR Admitting CT head: Small foci of intraparenchymal hemorrhage within the right anterior frontal lobe consistent with cortical contusions and a small focal areas of hyperdensity along the tentorium likely calcification versus subdural hemorrhage. Follow-up CT head x2 at 6 to 12 hours apart: Stable hemorrhage, no expansion. Patient neurologically stable, childs and sensation intact. Patient AO x3. Dysphagia screen, advance diet as tolerated As needed CT head for any acute worsening of neurological status. Every 4hr neurochecks. Per printing film stripper, ER provider was in touch with Dr. Brody, [facility] neurosurgery. DC IV fluids once patient starts to eat. PT/OT consult, likely need placement. #. Other chronic medical conditions: HTN, HLD, DM, BPH, dementia Resume/continue with home medication as and when appropriate. Troponin was flat trended around 0.05, EKG reviewed. Blood pressure slightly elevated, likely situational. A1c of 7 in September 2020. Appropriately controlled. Patient on sliding scale while in hospital. Aspirin on hold due to intracranial hemorrhage. PCU given troponin elevation DVT prophylaxis. SCDs Re: Traumatic ICH Full code as per son, Mr. Rajesh Headley. He requests updates from providers thru [phone]. 11/10 --> patient johnny Haro updated at bedside about the current status of the patient and further plan of care. Answered all his questions. He voiced understanding and was agreeable to the plan of care. Admission and Anticipated Discharge Date Admission Date: November 09, 2021 Subjective Patient was seen and examined at bedside for traumatic intracranial hemorrhage. Patient was lying in bed, on room air, NAD, no new acute events overnight. Patient denies any fever/chills/headache/dizziness/chest pain/palpitation/other review of symptoms. Patient remains n.p.o. until further CT scan of the head. Dysphagia screen as needed. Physical Exam Physical Exam: GENERAL: Alert and oriented x3. NAD, on RA. HEENT: No pallor, no icterus. Pupils equal, round and reactive to light. Oral mucosa dry. NECK: No JVD, no neck masses. HEART: S1 and S2 heard. Regular rate and rhythm. No murmur, no gallop. RESPIRATORY SYSTEM: Normal AP diameter. No accessory muscle use. No wheezing, no crackles. Decreased breath sounds. ABDOMEN: Soft, bowel sounds present, nontender, no distention. CENTRAL NERVOUS SYSTEM: No facial droop. Speech is clear. Obeys simple commands. Moves extremities. EXTREMITIES: No edema, no erythema seen. Results & Data Results & Data ([facility]) Vital Signs (Past 12 Hours) Vital Signs Temp Pulse Resp BP Pulse Ox 11/10/21 08:00 36.7 C 70 18 148/82 H 96
[2021-11-10] MEDS ORDERED: hydrALAZINE HCL 20 MG/ML VIAL IV PRN (17:35)
[2021-11-10] MEDS ORDERED: INSULIN GLARGINE SOLOSTAR 100 UNITS/ML 3 ML PEN SC SCH (19:15)
[2021-11-11] MEDS: INSULIN ASPART PER UNIT SC SCH ×3 (01:12→12:40)
[2021-11-11 06:00] LABS: Hematocrit (blood only) 45.9 % (42-52); Hemoglobin 15.7 g/dL (14.0-18.0); Mean Corpuscular Hemoglobin 30.6 pg (25-34); Mean Corpuscular Hgb Conc 34.2 g/dL (32-36); Mean Corpuscular Volume 89.5 fL (80-100); Mean Platelet Volume 9.4 fL (7.4-10.4); Platelet Count 268 K/uL (130-400); RDW Coefficient of Variation 13.6 % (11.5-14.5); RDW Standard Deviation 44.6 fL (36.4-46.3); Red Blood Count 5.13 M/uL (4.7-6.1); White Blood Count 8.29 K/uL (4.8-10.8)
[2021-11-11 06:21] LABS: BUN Creatinine Ratio 14.9 (10-20); Calcium 9.5 mg/dl (8.5-10.1); Creatinine Clr Calc Pharmacy 51.6 ml/min; Est GFR (African American) 89.9 ml/min; Est GFR (Non-African American) 77.6 ml/min; Magnesium 2.1 mg/dl (1.7-2.4); Phosphorus 3.4 mg/dl (2.5-4.9); Potassium 3.8 mmol/L (3.5-5.1)
[2021-11-11 07:29] LABS: Estimated Average Glucose 163 mg/dl; Hemoglobin A1C 7.3 % (4.5-5.6)
[2021-11-11] MEDS: ATORVASTATIN 20 MG TAB PO SCH (08:42)
[2021-11-11] MEDS: DONEPEZIL HCL 5 MG TAB PO SCH (08:42)
[2021-11-11] MEDS: OXYBUTYNIN CHLORIDE XL 5 MG TABCR PO SCH (08:42)
--- NOTE | 2021-11-11 14:56 | Discharge Summary ---
Date of Service November 11, 2021 Admission HPI Per Admitting Provider Chief Complaint: Head trauma Primary Care Provider: Marianela Barboza MD History obtained from patient, family, and records. Limited history from patient secondary to dementia. Medical history significant for dementia, hyperlipidemia, BPH, DM2 diet- controlled. Patient last few days, patient noted to be sluggish with runny nose and sinus congestion symptoms. Headache with decreased appetite. No chest pain, no S OB. Family contacted PCP 2 days ago regarding concerns. PCP recommended outpatient COVID-19 test. No known recent COVID-19 contacts. Patient completed COVID-19 vaccination. Patient tilted over while seated at a chair at home. Left-sided head trauma without LOC. Patient brought to the ER for evaluation. Admission Exam Per Admitting Provider GENERAL: Demented, comfortable, no respiratory distress SKIN: Normal color, warm HEENT: Partial alopecia, pink palpebral conjunctivae, no ptosis, dry buccal mucosa NECK : Cervical collar in place, no tenderness CHEST : Decreased breath sounds, no tenderness HEART : RRR, systolic murmur best heard over left sternal border ABDOMEN: Some distention, nontender EXTREMITIES : No LE swelling/tenderness, no other conspicuous deformities noted NEUROLOGIC : Demented, no facial asymmetry, gait and stance not assessed Principal Diagnosis Traumatic intracranial hemorrhage Weakness Discharge Exam GENERAL: Alert and oriented x3. NAD, on RA. HEENT: No pallor, no icterus. Pupils equal, round and reactive to light. Oral mucosa moist. NECK: No JVD, no neck masses. HEART: S1 and S2 heard. Regular rate and rhythm. No murmur, no gallop. RESPIRATORY SYSTEM: Normal AP diameter. No accessory muscle use. No wheezing, no crackles. Decreased breath sounds. ABDOMEN: Soft, bowel sounds present, nontender, no distention. CENTRAL NERVOUS SYSTEM: No facial droop. Speech is clear. Obeys simple commands. Moves extremities. EXTREMITIES: No edema, no erythema seen. Discharge Data Allergies Allergy/AdvReac Type Severity Reaction Status Date / Time No Known Allergies Allergy Unverified 11/09/21 20:40 Consultations 11/09/21 20:07 ED Decision to Admit Stat Ordered Studies 11/09/21 15:21 CT head/brain wo con Stat 11/09/21 22:30 CT head/brain wo con Stat 11/10/21 10:30 CT head/brain wo con Urgent Hospital Course (1) Acute intra-cranial hemorrhage: 86-year-old male with PMH of dementia, HLD, BPH, DM 2 diet-controlled presented 11/09 to our ED after fall and found to have traumatic ICH at ED. Per patient's son Rajesh, patient fell on the wooden floor while trying to sit himself on chair on the day of arrival. 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 He was managed for the following: #. Acute intracranial hemorrhage #. Weakness Patient tilted over while seated at a chair at home. Left-sided head trauma without LOC. Patient did not have any dizziness/sweating/nausea/chest pain/palpitation prior to fall. Per patient's son, patient has not been eating properly and has been becoming weak 2 days POLICE AIDE Admitting CT head: Small foci of intraparenchymal hemorrhage within the right anterior frontal lobe consistent with cortical contusions and a small focal areas of hyperdensity along the tentorium likely calcification versus subdural hemorrhage. Follow-up CT head x2 at 6 to 12 hours apart: Stable hemorrhage, no expansion. Patient neurologically stable, childs and sensation intact. Patient AO x3. Patient tolerating full liquid diet, advance as tolerated. Follow-up with neuro trauma follow-up clinic with [facility] in 2 weeks time upon discharge. Follow-up with primary care physician within a week time. Get CT head without contrast done just prior to follow-up with neurotrauma clinic at [facility]. #. Other chronic medical conditions: HTN, HLD, DM, BPH, dementia Resume/continue with home medication as and when appropriate. Troponin was flat trended around 0.05, EKG reviewed. Blood pressure slightly elevated, likely situational. A1c of 7 in September 2020. Appropriately controlled. Aspirin discontinued upon discharge. DVT prophylaxis. SCDs Re: Traumatic ICH Full code as per son, Mr. Rajesh Headley. 11/10 --> patient son Estrellita updated at bedside about the current status of the patient and further plan of care. Answered all his questions. He voiced understanding and was agreeable to the plan of care. 11/11 --> patient son israel updated at bedside about the current status of the patient and further plan of care. Answered all his questions. He voiced understanding and was agreeable to the plan of care. Neurosurgery Dr. Royal was reached out via phone for further recommendation on discharge of our traumatic intracranial hemorrhage patient. He is stable to go from neurosurgery point of view. He will need follow-up in 2 weeks with them. Aspirin has been discontinued until further evaluation by neurotrauma based on the suggestion by the neurosurgery team at [facility]. Following instructions were communicated at the point of discharge: Follow-up with your primary care physician within a week time. Follow-up with neurotrauma follow-up clinic with [facility] in [address] head without contrast just prior to neurotrauma follow-up. Since you had bleed within the head, your aspirin will be stopped upon discharge until further evaluation by the neurotrauma clinic. Take medications as prescribed Fall precautions. Total Time Total Time Spent Total Time Spent (In Minutes): 35 Discharge Plan Discharge Items Patient Disposition: Home - Self-Care Reason For Visit: ICH Discharge Diagnosis: Traumatic intracranial hemorrhage Weakness Activity: Resume your previous activity Non-emergency contact: Primary Care Provider Call non-emergency contact if: you have any medication questions and your symptoms worsen Follow-up/Referrals: Marianela Barboza MD [Primary Care Provider] - (Date & Time 11/14/2021 11:20 AM Provider Marianela Barboza MD Department General Internal Medicine [facility] ) Diet: Heart Healthy Addtl Attending Provider Instructions: Follow-up with your primary care physician within a week time. [facility] [address] head without contrast just prior to neurotrauma follow-up. Since you had bleed within the head, your aspirin will be stopped upon discharge until further evaluation by the neurotrauma clinic. Take medications as prescribed Fall precautions. Pending Studies at Discharge: No Stand-Alone Forms: My [employer], Smoking Cessation Medications and DC Order Prescriptions: Continued donepezil [Aricept] 5 mg Tablet 5 mg PO QAM RF: 0 oxybutynin chloride 10 mg Tablet Extended Release 24hr 10 mg PO DAILY RF: 0 trazodone 50 mg Tablet 50 mg PO HS RF: 0 atorvastatin 20 mg Tablet 20 mg PO DAILY RF: 0 Discontinued aspirin [Aspir-Low] 81 mg Tablet,Delayed Release (Dr/Ec) 81 mg PO DAILY RF: 0 Discharge Orders: Discharge Order (Routine); Ordered 11/11/21 Ordered By: Masood Avendaño/Other Patient Handouts: A1C, Managing Type 2 Diabetes Admission Data Admit Date/Time: 11/09/21 21:05 Attending Provider: Masood Liz Admit Provider: Niels Cheema Primary Care Provider: Marianela Barboza Other Providers: Niels Cheema
--- NOTE | 2021-11-11 21:48 | Electrocardiogram Report ---
Test Reason : Blood Pressure : / mmHG Vent. Rate : 076 BPM Atrial Rate : 076 BPM P-R Int : 168 ms QRS Dur : 112 ms QT Int : 426 ms P-R-T Axes : 059 095 069 degrees QTc Int : 479 ms Poor data quality, interpretation may be adversely affected Normal sinus rhythm Possible Left atrial enlargement Rightward axis Incomplete right bundle branch block Borderline ECG No previous ECGs available Confirmed by Edi Bray ([id number]) on 11/11/2021 9:48:33 PM Referred By: REFERRED SELF Confirmed By:Edi Bray
== END 2021-11-11 15:29 | disposition home or self-care (01) | DRG 87 ==
LOC: ED 14:57 → EDINP 21:05